=== PATIENT | male | born 1990 | race Caucasian/White ===

== ENCOUNTER 2017-12-21 17:01 | Emergency (ER) | payer MEDICAID ==
[~2017-12-21] VITALS: Ht 180.3 cm; Wt 74.8 kg
[2017-12-21 17:07] VITALS: BP_SYST 126
--- NOTE | 2017-12-21 17:10 | NUR ---
Patient to ER bed 2 to gown for evaluation. Side rails up. Report given to Vick EDOUARD.
--- NOTE | 2017-12-21 17:11 | NUR ---
C/O right cheek pain swelling, has deep areas of fluctance on check with 0.3cm x 0.3cm. Patient states this is the result of something falling on him at work and pciking at this wound. States this has been getting worse over the past week. Denies fever or radiation of pain
--- NOTE | 2017-12-21 17:13 | NUR ---
Marguerite WEIGHER AND CRUSHER at bedside examining patient.
[2017-12-21] MEDS ORDERED: NACL 0.9% 1,000 ML IV ONE (17:30)
[2017-12-21] MEDS ORDERED: DIPHENHYDRAMINE INJ 50 MG/ML VIAL IVP ONE (17:30)
[2017-12-21] MEDS ORDERED: DIPH-TET-PERTUS Vaccine 0.5 ML VIAL (ADACEL) I.M. ONE (17:30)
[2017-12-21] MEDS ORDERED: VANCOMYCIN HCL 1,000 MG in NS 250 ML IV ONE (17:30)
[2017-12-21] MEDS ORDERED: MORPHINE 4 MG/ML INJ. SYRINGE IVP ONE (17:30)
--- NOTE | 2017-12-21 17:49 | NUR ---
Patient refused IV medication, CT, and lab draw. Patient does not wish to proceed with medical care recommended by Marguerite MOREAU. Patient given information related to possible complications, up to and including , which could occur as a result of leaving hospital at this time. Patient verbalizes understanding of risks involved leaving against medical advice. Patient has signed AMA form. Patient was given prescriptions for Motrin, Keflex, Bactrim, and Mupurocin. Patient was advised to return to ER if he is feels that he is worsening or would like further treatment. Patient was given a referral to a [facility] so that he might establish a relationship with a primary care doctor. Patient ID band not on at time patient left AMA.
== END 2017-12-21 17:56 | disposition left against medical advice (07) ==
LOC: SED 17:01
DX: L03.211 Cellulitis of face (principal); R03.0 Elevated blood-pressure reading, without diagnosis of hypertension
CPT/HCPCS: 99281